=== PATIENT | male | born 1975 | race Caucasian/White ===

== ENCOUNTER 2018-05-24 14:11 | Inpatient (IN) | payer MEDICAID ==
[~2018-05-24] VITALS: Ht 162.6 cm; Wt 72.9 kg
[2018-05-24] MEDS ORDERED: NACL 0.9% 1,000 ML IV ONE (14:13)
[2018-05-24 14:24] VITALS: BP_SYST 170
[2018-05-24 15:05] LABS: BASOPHILS % (AUTO) 0.8 % (0.0-2.0); CALCIUM 9.1 mg/dL (8.4-11.0); EOSINOPHILS # (AUTO) 0.2 K/uL (0.0-0.4); EOSINOPHILS % (AUTO) 6.1 % (0.0-4.0); HEMATOCRIT 28.1 % (36-54); HEMOGLOBIN 9.2 g/dL (14.0-18.0); LYMPHOCYTES # (AUTO) 0.7 K/uL (1.0-5.5); LYMPHOCYTES % (AUTO) 20.4 % (20.5-51.5); MEAN CORPUSCULAR HEMOGLOBIN 29 pg (27-31); MEAN CORPUSCULAR HGB CONC 33 % (32-36); MEAN CORPUSCULAR VOLUME 88 fL (79.0-98.0); MONOCYTES # (AUTO) 0.2 K/uL (0.0-1.0); MONOCYTES % (AUTO) 6.5 % (1.7-9.3); NEUTROPHILS # (AUTO) 2.5 K/uL (1.8-7.7); NEUTROPHILS % (AUTO) 66.2 % (40.0-70.0); POTASSIUM 3.6 mmol/L (3.5-5.1); RED CELL DISTRIBUTION WIDTH 14.8 % (9.0-15.0); WHITE BLOOD COUNT (AUTO) 3.6 K/uL (4.8-10.8)
[2018-05-24 15:11] LABS: ALBUMIN 3.2 g/dL (3.4-4.8); CREATININE 19.72 mg/dL (0.55-1.30); TOTAL BILIRUBIN 0.4 mg/dL (0.0-1.0)
[2018-05-24 15:27] LABS: PLATELET COUNT (AUTO) 42 K/uL (130-430)
[2018-05-24] MEDS ORDERED: METO25TA6 PO (16:14)
[2018-05-24] MEDS ORDERED: FURO80TA86 PO (16:14)
[2018-05-24] MEDS ORDERED: AMLO10TA88 PO (16:14)
[2018-05-24] MEDS ORDERED: ACETAMINOPHEN 650 MG/20.3 ML UDC PO PRN (16:15)
[2018-05-24] MEDS ORDERED: SIMV20TA2 PO (16:16)
[2018-05-24] MEDS ORDERED: DOCU-144 PO (16:16)
[2018-05-24] MEDS ORDERED: FOLI-43 PO (16:17)
[2018-05-24] MEDS ORDERED: TAMS-11 PO (16:19)
[2018-05-24] MEDS ORDERED: PANT20TA2 PO (16:19)
[2018-05-24] MEDS ORDERED: SERT50TA12 PO (16:20)
[2018-05-24 16:40] VITALS: BP_SYST 149
[2018-05-24] MEDS ORDERED: PIPERACILLIN/TAZOBACTAM 2.25 GM VIAL IV ONE ×2 (18:02→22:20)
[2018-05-24] MEDS: PIPERACILLIN/TAZO 2.25G/DEX-IS 50 ML IV SCH ×2 (18:11→23:58)
[2018-05-24 20:00] VITALS: BP_SYST 143
[2018-05-24] MEDS ORDERED: METOPROLOL TARTRATE 25 MG TABLET PO SCH (23:00)
[2018-05-24] MEDS ORDERED: TEMAZEPAM 7.5 MG CAPSULE PO PRN (23:00)
[2018-05-25 00:15] VITALS: BP_SYST 147
[2018-05-25 03:40] LABS: BILIRUBIN,URINE NEGATIVE (NEGATIVE); BLOOD, URINE 3+ (NEGATIVE); CLARITY/URINE CLEAR (CLEAR); COLOR,URINE YELLOW (YELLOW); GLUCOSE,URINE TRACE (NEGATIVE); KETONES,URINE NEGATIVE (NEGATIVE); LEUKOCYTE ESTERASE ,URINE NEGATIVE (NEGATIVE); NITRITE, URINE NEGATIVE (NEGATIVE); PROTEIN URINE 3+ (NEGATIVE); UROBILINOGEN,URINE 0.2 (0.2-1.0)
[2018-05-25 04:13] LABS: BACTERIA,URINE FEW /HPF (None Seen); RBC,URINE 50-80 /HPF (0-3); TRICHOMONAS,URINE None Seen /HPF (None Seen); WBC,URINE 0-3 /HPF (0-3); YEAST,URINE None Seen /HPF (None Seen)
[2018-05-25] MEDS: PIPERACILLIN/TAZO 2.25G/DEX-IS 50 ML IV SCH (05:49)
[2018-05-25 06:09] LABS: BASOPHILS % (AUTO) 0.6 % (0.0-2.0); EOSINOPHILS # (AUTO) 0.3 K/uL (0.0-0.4); EOSINOPHILS % (AUTO) 6.6 % (0.0-4.0); HEMATOCRIT 26.5 % (36-54); HEMOGLOBIN 8.9 g/dL (14.0-18.0); LYMPHOCYTES # (AUTO) 1.2 K/uL (1.0-5.5); LYMPHOCYTES % (AUTO) 30.5 % (20.5-51.5); MEAN CORPUSCULAR HEMOGLOBIN 29 pg (27-31); MEAN CORPUSCULAR HGB CONC 34 % (32-36); MEAN CORPUSCULAR VOLUME 88 fL (79.0-98.0); MONOCYTES # (AUTO) 0.3 K/uL (0.0-1.0); MONOCYTES % (AUTO) 7.7 % (1.7-9.3); NEUTROPHILS # (AUTO) 2.2 K/uL (1.8-7.7); NEUTROPHILS % (AUTO) 54.6 % (40.0-70.0); RED BLOOD CELL COUNT(AUTO) 3.02 MIL/uL (4.2-6.2); RED CELL DISTRIBUTION WIDTH 14.9 % (9.0-15.0)
[2018-05-25 06:34] LABS: ALBUMIN 2.8 g/dL (3.4-4.8); CALCIUM 8.6 mg/dL (8.4-11.0); PHOSPHORUS 6.9 mg/dL (2.7-4.5); POTASSIUM 3.3 mmol/L (3.5-5.1); THYROID STIMULATING HORMONE 0.67 uIu/mL (0.34-4.82); TOTAL BILIRUBIN 0.4 mg/dL (0.0-1.0)
[2018-05-25 06:46] LABS: CREATININE 19.59 mg/dL (0.55-1.30)
[2018-05-25 06:54] LABS: PLATELET COUNT (AUTO) 35 K/uL (130-430)
[2018-05-25 08:00] VITALS: BP_SYST 145
[2018-05-25 09:02] LABS: TOTAL IRON BIND. CAPACITY 222 ug/dL (250-450)
[2018-05-25] MEDS: DOCUSATE SODIUM 100 MG CAPSULE PO SCH ×2 (09:10→21:20)
[2018-05-25] MEDS: METOPROLOL TARTRATE 25 MG TABLET PO SCH ×2 (09:11→21:21)
[2018-05-25] MEDS: FUROSEMIDE 80 MG TABLET PO SCH (09:11)
[2018-05-25] MEDS: SERTRALINE HCL 50 MG TABLET PO SCH (09:11)
[2018-05-25] MEDS: FOLIC ACID 1 MG TABLET PO SCH (09:11)
[2018-05-25] MEDS: TAMSULOSIN HCL 0.4 MG CAP PO SCH (10:36)
[2018-05-25] MEDS ORDERED: POTASSIUM CHLORIDE 20 MEQ TAB.PRT.SR PO ONE (11:45)
[2018-05-25 12:00] VITALS: BP_SYST 155
[2018-05-25] MEDS ORDERED: LEVOFLOXACIN 250 MG/D5W 50 ML IV ONE (12:00)
[2018-05-25] MEDS: cefTRIAXone 1 GM in D5W 50 ML IV SCH (12:17)
[2018-05-25] MEDS ORDERED: amLODIPine BESYLATE 10 MG TABLET PO ONE (12:45)
[2018-05-25 16:00] VITALS: BP_SYST 141
[2018-05-25 19:00] VITALS: BP_SYST 138
[2018-05-25 20:00] VITALS: BP_SYST 138
[2018-05-25] MEDS: SIMVASTATIN 20 MG TABLET PO SCH (21:21)
[2018-05-26 00:50] VITALS: BP_SYST 159
[2018-05-26 07:48] LABS: BASOPHILS % (AUTO) 0.7 % (0.0-2.0); EOSINOPHILS # (AUTO) 0.2 K/uL (0.0-0.4); EOSINOPHILS % (AUTO) 5.8 % (0.0-4.0); HEMATOCRIT 25.5 % (36-54); HEMOGLOBIN 8.8 g/dL (14.0-18.0); LYMPHOCYTES # (AUTO) 1.1 K/uL (1.0-5.5); LYMPHOCYTES % (AUTO) 27.4 % (20.5-51.5); MEAN CORPUSCULAR HEMOGLOBIN 30 pg (27-31); MEAN CORPUSCULAR HGB CONC 34 % (32-36); MEAN CORPUSCULAR VOLUME 87 fL (79.0-98.0); MONOCYTES # (AUTO) 0.3 K/uL (0.0-1.0); MONOCYTES % (AUTO) 7.9 % (1.7-9.3); NEUTROPHILS # (AUTO) 2.5 K/uL (1.8-7.7); RED BLOOD CELL COUNT(AUTO) 2.94 MIL/uL (4.2-6.2); RED CELL DISTRIBUTION WIDTH 14.7 % (9.0-15.0); WHITE BLOOD COUNT (AUTO) 4.1 K/uL (4.8-10.8)
[2018-05-26 08:32] LABS: CALCIUM 8.7 mg/dL (8.4-11.0); POTASSIUM 3.4 mmol/L (3.5-5.1)
[2018-05-26 08:36] LABS: CREATININE 18.99 mg/dL (0.55-1.30)
[2018-05-26 08:50] LABS: PLATELET COUNT (AUTO) 43 K/uL (130-430)
[2018-05-26 09:29] VITALS: BP_SYST 153
[2018-05-26] MEDS: SERTRALINE HCL 50 MG TABLET PO SCH (09:32)
[2018-05-26] MEDS: METOPROLOL TARTRATE 25 MG TABLET PO SCH ×2 (09:32→21:15)
[2018-05-26] MEDS: DOCUSATE SODIUM 100 MG CAPSULE PO SCH ×2 (09:32→21:00)
[2018-05-26] MEDS: TAMSULOSIN HCL 0.4 MG CAP PO SCH (09:33)
[2018-05-26] MEDS: PANTOPRAZOLE SODIUM 40 MG TAB PO SCH (09:33)
[2018-05-26] MEDS: FUROSEMIDE 80 MG TABLET PO SCH (09:33)
[2018-05-26] MEDS: amLODIPine BESYLATE 10 MG TABLET PO SCH (09:33)
[2018-05-26] MEDS: FOLIC ACID 1 MG TABLET PO SCH (09:33)
[2018-05-26 12:03] LABS: NEUTROPHILS % (AUTO) 58.2 % (40.0-70.0)
[2018-05-26] MEDS: cefTRIAXone 1 GM in D5W 50 ML IV SCH (12:11)
[2018-05-26 14:09] VITALS: BP_SYST 149
[2018-05-26 18:29] VITALS: BP_SYST 147
[2018-05-26 19:50] VITALS: BP_SYST 144
[2018-05-26] MEDS: SIMVASTATIN 20 MG TABLET PO SCH (21:15)
[2018-05-27 00:54] VITALS: BP_SYST 153
[2018-05-27 06:08] LABS: FOLATE (FOLIC ACID) >20.0 ng/mL (>3.0)
[2018-05-27 07:46] LABS: BASOPHILS % (AUTO) 0.9 % (0.0-2.0); EOSINOPHILS # (AUTO) 0.3 K/uL (0.0-0.4); EOSINOPHILS % (AUTO) 5.9 % (0.0-4.0); HEMATOCRIT 27.7 % (36-54); HEMOGLOBIN 9.1 g/dL (14.0-18.0); LYMPHOCYTES # (AUTO) 1.4 K/uL (1.0-5.5); LYMPHOCYTES % (AUTO) 30.1 % (20.5-51.5); MEAN CORPUSCULAR HEMOGLOBIN 29 pg (27-31); MEAN CORPUSCULAR HGB CONC 33 % (32-36); MEAN CORPUSCULAR VOLUME 89 fL (79.0-98.0); MONOCYTES # (AUTO) 0.3 K/uL (0.0-1.0); MONOCYTES % (AUTO) 6.8 % (1.7-9.3); NEUTROPHILS # (AUTO) 2.7 K/uL (1.8-7.7); NEUTROPHILS % (AUTO) 56.3 % (40.0-70.0); PLATELET COUNT (AUTO) 59 K/uL (130-430); RED BLOOD CELL COUNT(AUTO) 3.11 MIL/uL (4.2-6.2); RED CELL DISTRIBUTION WIDTH 14.6 % (9.0-15.0); WHITE BLOOD COUNT (AUTO) 4.7 K/uL (4.8-10.8)
[2018-05-27 08:00] VITALS: BP_SYST 147
[2018-05-27 08:03] LABS: ALBUMIN 2.7 g/dL (3.4-4.8); POTASSIUM 3.5 mmol/L (3.5-5.1); TOTAL BILIRUBIN 0.4 mg/dL (0.0-1.0)
[2018-05-27 08:10] LABS: CREATININE 20.41 mg/dL (0.55-1.30)
[2018-05-27] MEDS: DOCUSATE SODIUM 100 MG CAPSULE PO SCH (09:10)
[2018-05-27] MEDS: FOLIC ACID 1 MG TABLET PO SCH (09:10)
[2018-05-27] MEDS: FUROSEMIDE 80 MG TABLET PO SCH (09:10)
[2018-05-27] MEDS: amLODIPine BESYLATE 10 MG TABLET PO SCH (09:11)
[2018-05-27] MEDS: PANTOPRAZOLE SODIUM 40 MG TAB PO SCH (09:11)
[2018-05-27] MEDS: SERTRALINE HCL 50 MG TABLET PO SCH (09:11)
[2018-05-27] MEDS: METOPROLOL TARTRATE 25 MG TABLET PO SCH (09:11)
[2018-05-27] MEDS: TAMSULOSIN HCL 0.4 MG CAP PO SCH (09:11)
[2018-05-27] MEDS: cefTRIAXone 1 GM in D5W 50 ML IV SCH (12:34)
[2018-05-27 12:50] VITALS: BP_SYST 148
[2018-05-27] MEDS ORDERED: L.RH1CAP PO (12:52)
[2018-05-27] MEDS ORDERED: CEPH250S PO (12:52)
[2018-05-27 14:55] VITALS: BP_SYST 148
[2018-05-27 14:56] LABS: FERRITIN 872 ng/mL (30-400)
[2018-05-27 16:49] VITALS: BP_SYST 135
== END 2018-05-27 16:50 | disposition home or self-care (01) | DRG 463 ==
LOC: SED 14:11 → SMU 16:13
PROVIDERS: ADMIT Internal Medicine; ATTEND Internal Medicine
PROC: 3E1M39Z Irrigation of Peritoneal Cavity using Dialysate, Percutaneous Approach (ICD-10-PCS; principal; 2018-05-24)
PROC: 3E1M39Z Irrigation of Peritoneal Cavity using Dialysate, Percutaneous Approach (ICD-10-PCS; 2018-05-25)
PROC: 3E1M39Z Irrigation of Peritoneal Cavity using Dialysate, Percutaneous Approach (ICD-10-PCS; 2018-05-26)
DX: N39.0 Urinary tract infection, site not specified (principal); D69.6 Thrombocytopenia, unspecified; I12.0 Hypertensive chronic kidney disease with stage 5 chronic kidney disease or end stage renal disease; N18.6 End stage renal disease; R18.8 Other ascites; N20.0 Calculus of kidney; R31.9 Hematuria, unspecified; K21.9 Gastro-esophageal reflux disease without esophagitis; N40.0 Benign prostatic hyperplasia without lower urinary tract symptoms; F32.9 Major depressive disorder, single episode, unspecified; E78.5 Hyperlipidemia, unspecified; D63.1 Anemia in chronic kidney disease; Z79.899 Other long term (current) drug therapy; Z87.442 Personal history of urinary calculi; Z99.2 Dependence on renal dialysis
CPT/HCPCS: 36415; 71045; 74150-TC; 76700-TC; 80048; 80053; 81000-TC; 82150-TC; 82550-TC; 82607; 82728; 82746; 83540-TC; 83550-TC; 83690-TC; 84100-TC; 84443-TC; 85025; 85384-TC; 85610-TC; 85730-TC; 87081; 87086; 93005; 96360; 99285; J0696; J1956; J2543; J7030; J7060

== ENCOUNTER 2019-12-07 11:43 | Emergency (ER) | payer MEDICAID ==
[~2019-12-07] VITALS: Ht 165.1 cm; Wt 74.8 kg
[~2019-12-07 11:43] MED LIST: AMLO10TA88 PO; CEPH250S PO; DOCU-144 PO; FOLI-43 PO; FURO80TA86 PO; L.RH1CAP PO; METO25TA6 PO; PANT20TA2 PO; SERT50TA12 PO; SIMV20TA2 PO; TAMS-11 PO
--- NOTE | 2019-12-07 11:45 | NUR ---
PATIENT TO ER #3 WITH HEALTH INFORMATION TECHNOLOGIST, SAO2 ABP AND STAT EKG
--- NOTE | 2019-12-07 11:48 | NUR ---
Patient arrived in the ED c/o chest pain for the last 2 days. Denied any chest pain or shortness of breath. Denied any fevers, chills, nausea or vomiting. Patient is alert and oriented x4, respirations even and unlabored, speaking in full sentences, and ambulating with a steady gait. VSS, pain level 7/10. Informed of the approximate wait time. Instructed to notify ED staff for any changes in condition or worsening of symptoms while waiting to be seen by an ED provider. Patient verbalized understanding.
--- NOTE | 2019-12-07 11:52 | NUR ---
ECG done at bedside as ordered by Dr. Smith. Patient tolerated the procedure well. ER Physician given copy of EKG for review.
--- NOTE | 2019-12-07 12:00 | NUR ---
ER Dr. Smith at bedside examining patient.
[2019-12-07 12:03] VITALS: BP_SYST 158
--- NOTE | 2019-12-07 12:07 | NUR ---
Reconciled medications.
--- NOTE | 2019-12-07 12:12 | NUR ---
civil drafting technician at bedside collecting blood specimen as ordered by Dr. Smith. Patient tolerated the procedure well.
--- NOTE | 2019-12-07 12:18 | NUR ---
X-ray done at bedside as ordered by Dr. Smith. Patient tolerated the procedure well.
[2019-12-07 12:33] LABS: BASOPHILS % (AUTO) 0.8 % (0.0-2.0); EOSINOPHILS # (AUTO) 0.1 K/uL (0.0-0.4); EOSINOPHILS % (AUTO) 1.1 % (0.0-4.0); HEMATOCRIT 22.8 % (36-54); HEMOGLOBIN 7.5 g/dL (14.0-18.0); LYMPHOCYTES # (AUTO) 0.9 K/uL (1.0-5.5); LYMPHOCYTES % (AUTO) 15.7 % (20.5-51.5); MEAN CORPUSCULAR HEMOGLOBIN 30 pg (27-31); MEAN CORPUSCULAR HGB CONC 33 % (32-36); MEAN CORPUSCULAR VOLUME 90 fL (79.0-98.0); MONOCYTES # (AUTO) 0.4 K/uL (0.0-1.0); MONOCYTES % (AUTO) 7.3 % (1.7-9.3); NEUTROPHILS # (AUTO) 4.4 K/uL (1.8-7.7); NEUTROPHILS % (AUTO) 75.1 % (40.0-70.0); PLATELET COUNT (AUTO) 79 K/uL (130-430); RED BLOOD CELL COUNT(AUTO) 2.54 MIL/uL (4.2-6.2); RED CELL DISTRIBUTION WIDTH 15.2 % (9.0-15.0); WHITE BLOOD COUNT (AUTO) 5.9 K/uL (4.8-10.8)
[2019-12-07 12:45] LABS: CALCIUM 8.3 mg/dL (8.4-11.0); POTASSIUM 3.5 mmol/L (3.5-5.1)
[2019-12-07 12:52] LABS: ALBUMIN 2.5 g/dL (3.4-4.8); TOTAL BILIRUBIN 0.4 mg/dL (0.0-1.0)
[2019-12-07 12:53] LABS: CREATININE 19.36 mg/dL (0.55-1.30)
--- NOTE | 2019-12-07 13:28 | NUR ---
Patient given written and verbal discharge instructions and verbalizes understanding. ER MD discussed with patient the results and treatment provided. Patient in stable condition. ID arm band removed. Rx of Elvis given. Patient educated on pain management and to follow up with PMD. Pain Scale 0/10. Opportunity for questions provided and answered. Medication side effect fact sheet provided.
[2019-12-07 15:05] VITALS: BP_SYST 169
== END 2019-12-07 13:27 | disposition home or self-care (01) ==
LOC: SED 11:43
DX: R07.2 Precordial pain (principal); D64.9 Anemia, unspecified; I10 Essential (primary) hypertension; E78.00 Pure hypercholesterolemia, unspecified; Z79.899 Other long term (current) drug therapy
CPT/HCPCS: 36415; 71045; 80053; 82550-TC; 83880; 84484; 85025; 93005; 99285